=== PATIENT | male | born 1990 | race Caucasian/White ===

== ENCOUNTER 2016-12-18 14:19 | Emergency (ER) | payer MEDICARE ==
[2016-12-18 15:44] LABS: HEMOGLOBIN 15.2 gm/dl (14.0-17.5); RED BLOOD COUNT 5.29 M/UL (4.20-5.50)
[2016-12-18 16:04] LABS: BUN/CREATININE RATIO 18 (0-10)
== END 2016-12-18 18:59 | disposition home or self-care (01) ==
LOC: ER1 14:19
PROVIDERS: Emergency Medicine
DX: B34.9 Viral infection, unspecified (principal)
CPT/HCPCS: 36415; 71010; 80053; 81001; 82550; 82553; 83874; 84484; 85025; 99284